=== PATIENT | male | born 1995 | race Hispanic/Latino ===

== ENCOUNTER → 2018-07-28 | Outpatient (CLI) | payer OTHER ==
--- NOTE | 2018-07-29 02:29 | REP ---
Clinical: Lower back pain . Technique: AP, lateral, bilateral oblique, and coned-down views. Findings: Alignment and lordosis is maintained. The vertebral bodies including transverse process and spinous processes are intact and normal. There is no evidence for acute fracture / compression injury or subluxation. No evidence for spondylolysis or spondylolisthesis. No significant degenerative change is noted. Impression: Normal lumbosacral spine radiograph series. Electronically Signed by Hiram Calderon MD 07/29/2018 02:20 A
== END ==
LOC: M RAD 08:45
PROVIDERS: ATTEND Surgery
DX: M54.5 Low back pain (principal)

== ENCOUNTER → 2019-03-05 | Outpatient (CLI) | payer OTHER ==
--- NOTE | 2019-03-05 09:42 | REP ---
Clinical: Trauma. Technique: AP, lateral, bilateral oblique and sunrise views. Findings: The osseous structures and joint spaces are intact and normal. There is no evidence for acute fracture or dislocation. Suprapatellar effusion cannot be excluded. Surrounding soft tissues are unremarkable. No subcutaneous emphysema or radiodense foreign body. Impression: No acute fracture or dislocation. Electronically Signed by Hiram Calderon MD 03/05/2019 09:33 A
== END ==
LOC: M RAD 08:52
PROVIDERS: ATTEND Surgery
DX: M25.561 Pain in right knee (principal)

== ENCOUNTER 2019-05-19 10:47 | Emergency (ER) | payer OTHER ==
[~2019-05-19] VITALS: Ht 172.7 cm; Wt 76.6 kg
[2019-05-19] MEDS ORDERED: IBUP-1022 PO (10:56)
--- NOTE | 2019-05-19 13:56 | REP ---
Clinical: Trauma. Technique: AP and oblique views of the right ankle. Findings: Oblique fracture of the distal fibula. Impression: Oblique fracture of the distal fibular metadiaphysis. Electronically Signed by Hiram Calderon MD 05/19/2019 01:48 P
[2019-05-19 15:20] VITALS: BP 116/57
--- NOTE | 2019-05-20 15:49 | CR ---
DATE OF CONSULTATION: 05/19/2019 CHIEF COMPLAINT: Right ankle pain. HISTORY OF PRESENT ILLNESS: The patient presents today after a week long history of pain. He says that he was playing basketball and he suffered a fall. He initially had sharp pain to the outside of his ankle. He was able to ambulate. Given the fact that the pain did not improve, it has not worsened with weightbearing, the patient presents today for evaluation. He denies any pain elsewhere. No fevers, chills, nausea, vomiting. It is a 4 to 5 constant pain that is increased with weightbearing and range of motion. He says that it alleviated with immobilization and rest. He denies any pain elsewhere. Denies any fevers, chills, nausea or vomiting. REVIEW OF SYSTEMS: 10-point system review is negative. Pertinent positives and negatives in history of present illness. ALLERGIES: No known drug allergies. MEDICATIONS: He does not currently take any medications. PAST MEDICAL HISTORY: No past medical history or surgical history. SOCIAL HISTORY: The patient is a resident at the [facility]. He denies any smoking, alcohol or illicit drug use. PHYSICAL EXAMINATION: The patient is awake, alert, oriented, well dressed, appropriate affect and mood. Normocephalic, atraumatic. Bilateral upper extremity examination: No tenderness to palpation. Full active range of motion of the fingers, wrists, and elbows without any pain or discomfort. Skin is intact to light touch. 2+ radial pulse, regular rate. Sensation intact to light touch, superficial sensory branches of the radial nerve, median nerve, and ulnar nerve. Positive anterior interosseous nerve (AIN), and posterior interosseous nerve (PIN), and ulnar motor nerve functions. Left lower extremity: No tenderness to palpation. Full range of motion of the hip, knee and ankle without any pain or discomfort. No tenderness to palpation about the knee, ankle and toes. Posterior tibial pulse 2+, regular rate, skin intact. Positive extensor hallucis longus (EHL), flexor hallucis longus (FHL), tibialis, gastroc motor function. Sensation is intact to light touch in superficial, peroneal, deep peroneal, sural, saphenous, and tibial distributions. Right lower extremity tender to palpation distal fibula. Pain with ankle range of motion. Otherwise, skin is intact. Mild swelling. Posterior tibial pulses 2+ regular rate. Positive EHL, FHL, tibialis, and gastroc motor function. Sensation is intact to light touch in superficial, peroneal, deep peroneal, sural, saphenous, and tibial distributions. Imaging reviewed of the ankle, demonstrating an oblique distal fibula shaft fracture with no medial opening, including with external stress. Minimal displacement. ASSESSMENT: The patient has suffered a stable right fibula fracture. At this time, we will place in a short leg cast with manipulation when molding the cast in order to improve fracture alignment. This was tolerated well by the patient. He will be seen back in the office in 1 week for repeat x-rays.nonweightbearing. While there is no immediate opening, we will be happy to continue conservative treatments, as this is a stable injury in a short leg cast for a total of 6 weeks. JOVON
== END 2019-05-19 16:02 | disposition home or self-care (01) ==
LOC: M ED 10:47
DX: S82.431A Displaced oblique fracture of shaft of right fibula, initial encounter for closed fracture (principal); X50.1XXA Overexertion from prolonged static or awkward postures, initial encounter; Y92.148 Other place in prison as the place of occurrence of the external cause; Y93.67 Activity, basketball; Y99.8 Other external cause status

== ENCOUNTER → 2019-05-19 | Outpatient (CLI) | payer OTHER ==
[~2019-05-19] MED LIST: IBUP-1022 PO
--- NOTE | 2019-05-19 09:29 | REP ---
Right ankle four views: There are no comparisons. There is a nondisplaced spiral fracture of the distal fibular shaft. The distal tibia is unremarkable. The mortise is symmetric. Mineralization is normal. There is no dislocation. The joint spaces are unremarkable. Impression: Nondisplaced spiral fracture of the distal fibula. Electronically Signed by Pipo Diaz MD 05/19/2019 09:20 A
== END ==
LOC: M RAD 08:50
PROVIDERS: ATTEND Surgery
DX: M25.571 Pain in right ankle and joints of right foot (principal)